=== PATIENT | male | born 1990 | race Caucasian/White ===

== ENCOUNTER 2019-09-20 15:42 | Emergency (ER) | payer OTHER, SELFPAY ==
--- NOTE | 2019-09-20 16:25 | RAD ---
XR Hand Rt 3 View STANDARD: 09/20/2019 4:04 PM CLINICAL INDICATION: History of the right long finger injury COMPARISON: None. FINDINGS: Bones: No acute osseous abnormality. Joints: Joint spaces are preserved. Soft Tissue: Soft tissues are normal appearing. IMPRESSION: No acute osseous abnormality..
[2019-09-20] MEDS ORDERED: traMADol HCl 50 MG TAB ONE (16:37)
[2019-09-20] MEDS ORDERED: Ibuprofen 800 MG TAB ONE (16:37)
== END 2019-09-20 16:45 | disposition home or self-care (01) ==
LOC: MADERS 15:42
DX: S60.031A Contusion of right middle finger without damage to nail, initial encounter (principal); W23.0XXA Caught, crushed, jammed, or pinched between moving objects, initial encounter

== ENCOUNTER 2021-04-02 08:52 | Emergency (ER) | payer SELFPAY ==
[2021-04-02] MEDS ORDERED: Dexamethasone 4 MG TAB ONE (09:36)
[2021-04-02 20:26] LABS: SARS-CoV-2 PCR by NAA Not Detected (NotDetected)
== END 2021-04-02 09:51 | disposition home or self-care (01) ==
LOC: MADERS 08:52
DX: J20.8 Acute bronchitis due to other specified organisms (principal); Z20.822 Contact with and (suspected) exposure to COVID-19
CPT/HCPCS: 71046; 87635; J7620; J8540; U0003; U0005

== ENCOUNTER 2021-08-05 04:27 | Emergency (ER) | payer OTHER, SELFPAY ==
[2021-08-05] MEDS ORDERED: Ibuprofen 800 MG TAB ONE (05:11)
== END 2021-08-05 05:16 | disposition home or self-care (01) ==
LOC: MADERS 04:27
DX: S62.316A Displaced fracture of base of fifth metacarpal bone, right hand, initial encounter for closed fracture (principal); F17.220 Nicotine dependence, chewing tobacco, uncomplicated; W22.8XXA Striking against or struck by other objects, initial encounter

== ENCOUNTER 2022-05-05 05:26 | Emergency (ER) | payer SELFPAY ==
[2022-05-05] MEDS ORDERED: Ketorolac Tromethamine 30 MG/ML VIAL ONE (05:50)
[2022-05-05] MEDS ORDERED: Orphenadrine Citrate 60 MG/2 ML VIAL ONE (05:50)
== END 2022-05-05 06:39 | disposition home or self-care (01) ==
LOC: MADERS 05:26
DX: M54.50 Low back pain, unspecified (principal); F17.220 Nicotine dependence, chewing tobacco, uncomplicated
CPT/HCPCS: 96372; 99283; J1885; J2360

== ENCOUNTER 2022-07-21 13:03 | Emergency (ER) | payer SELFPAY | END 2022-07-21 14:06 | disposition home or self-care (01) | LOC: MADERS 13:03 | DX: M94.0 Chondrocostal junction syndrome [Tietze] (principal); F17.220 Nicotine dependence, chewing tobacco, uncomplicated; X50.0XXA Overexertion from strenuous movement or load, initial encounter; Y93.F2 Activity, caregiving, lifting | CPT/HCPCS: 99283 ==

== ENCOUNTER 2023-05-28 10:19 | Emergency (ER) | payer SELFPAY ==
[2023-05-28] MEDS ORDERED: Boostrix 0.5 ML (Tdap) VIAL (>/=7 yrs of age) ONE (11:22)
[2023-05-28] MEDS ORDERED: Doxycycline 100 MG CAP ONE (11:22)
[2023-05-28] MEDS ORDERED: Cephalexin 500 MG CAP ONE (11:22)
== END 2023-05-28 11:32 | disposition home or self-care (01) ==
LOC: MADERS 10:19
DX: L03.113 Cellulitis of right upper limb (principal); L81.8 Other specified disorders of pigmentation; F17.210 Nicotine dependence, cigarettes, uncomplicated; Z23 Encounter for immunization
CPT/HCPCS: 90471; 90715; 99282

== ENCOUNTER 2023-09-05 12:49 | Emergency (ER) | payer SELFPAY ==
[2023-09-05] MEDS ORDERED: Lidocaine 1% PF 5 ML VIAL ONE (15:54)
[2023-09-05] MEDS ORDERED: Bacitracin 1 PK ONE (17:31)
== END 2023-09-05 17:40 | disposition home or self-care (01) ==
LOC: MADERS 12:49
DX: S61.212A Laceration without foreign body of right middle finger without damage to nail, initial encounter (principal); F17.290 Nicotine dependence, other tobacco product, uncomplicated; W26.8XXA Contact with other sharp object(s), not elsewhere classified, initial encounter
CPT/HCPCS: 12002

== ENCOUNTER 2023-09-14 11:00 | Emergency (ER) | payer SELFPAY | END 2023-09-14 11:12 | disposition home or self-care (01) | LOC: MADERS 11:00 | DX: S61.212D Laceration without foreign body of right middle finger without damage to nail, subsequent encounter (principal); F17.210 Nicotine dependence, cigarettes, uncomplicated ==

== ENCOUNTER 2023-10-11 19:19 | Emergency (ER) | payer SELFPAY ==
[2023-10-11] MEDS ORDERED: Ketorolac Tromethamine 30 MG/ML VIAL ONE (19:47)
[2023-10-11] MEDS ORDERED: Lidocaine 2% 20 ml MDV ONE (20:05)
== END 2023-10-11 19:56 | disposition home or self-care (01) ==
LOC: MADERS 19:19
DX: S33.5XXA Sprain of ligaments of lumbar spine, initial encounter (principal); F17.210 Nicotine dependence, cigarettes, uncomplicated; X50.0XXA Overexertion from strenuous movement or load, initial encounter
CPT/HCPCS: 96372; 99283; J1885

== ENCOUNTER 2024-06-11 12:44 | Emergency (ER) | payer OTHER, SELFPAY ==
[2024-06-11] MEDS ORDERED: Fluconazole 100 MG TAB ONE (13:13)
== END 2024-06-11 13:35 | disposition home or self-care (01) ==
LOC: MADERS 12:44
DX: N48.1 Balanitis (principal); F17.210 Nicotine dependence, cigarettes, uncomplicated
CPT/HCPCS: 99283

== ENCOUNTER 2024-06-22 11:22 | Emergency (ER) | payer SELFPAY ==
[2024-06-22] MEDS ORDERED: Tamsulosin HCl 0.4 MG CAP ONE (13:27)
[2024-06-22] MEDS ORDERED: Ketorolac Tromethamine 10 MG TAB ONE (13:27)
== END 2024-06-22 13:45 | disposition home or self-care (01) ==
LOC: MADERS 11:22
DX: K59.00 Constipation, unspecified (principal); N20.0 Calculus of kidney; F17.210 Nicotine dependence, cigarettes, uncomplicated
CPT/HCPCS: 74019; 99284

== ENCOUNTER 2025-08-08 15:37 | Emergency (ER) | payer SELFPAY | END 2025-08-08 17:17 | disposition home or self-care (01) | LOC: MADERS 15:37 | DX: B34.9 Viral infection, unspecified (principal); F17.290 Nicotine dependence, other tobacco product, uncomplicated; Z59.71 Insufficient health insurance coverage | CPT/HCPCS: 71046; 87428 ==